=== PATIENT | male | born 1945 | race Caucasian/White ===

== ENCOUNTER 2017-03-15 13:07 | Inpatient (IN) | payer MEDICAID, MEDICARE ==
[~2017-03-15] VITALS: Ht 182.9 cm; Wt 72.9 kg
[2017-03-15] MEDS ORDERED: SODIUM CHLORIDE 0.9% 1,000 ML IV ONE (13:17)
[2017-03-15] MEDS ORDERED: PLEASE ENTER HEIGHT AND WEIGHT MC SCH (13:30)
[2017-03-15] MEDS ORDERED: SODIUM CHLORIDE FLUSH 10ML SYR IVF ONE (13:30)
[2017-03-15] MEDS ORDERED: PLEASE ENTER ALLERGIES MC SCH ×2 (13:30)
[2017-03-15 13:41] LABS: HEMATOCRIT 46.4 % (39.2-51.8); HEMOGLOBIN 15.1 g/dL (13.7-18.0); WHITE BLOOD COUNT 15.5 x10^3/uL (3.4-10)
[2017-03-15 13:53] LABS: BLOOD UREA NITROGEN 18 mg/dL (7-18)
[2017-03-15 13:57] LABS: ASPARTATE AMINO TRANSFERASE 11 U/L (15-37); IS PT STATUS REG ER OR PRE ER? YES
[2017-03-15 15:15] LABS: DAU SCREEN DISCLAIMER
[2017-03-15] MEDS ORDERED: THIAMINE 100 MG in SODIUM CHLORIDE 0.9% 50 ML IVPB ONE (16:00)
[2017-03-15] MEDS ORDERED: LIDOCAINE 1%, 20ML ONE (17:18)
[2017-03-15] MEDS ORDERED: ACETAMINOPHEN 325 MG TABLET PO PRN (17:30)
[2017-03-15] MEDS ORDERED: POLYETHYLENE GLYCOL 17 GM PACKET PO PRN ×2 (17:30→19:00)
[2017-03-15] MEDS ORDERED: DOCUSATE 100 MG CAPSULE PO PRN ×2 (17:30→19:00)
[2017-03-15] MEDS ORDERED: BISACODYL 10 MG SUPP PR PRN ×2 (17:30→19:00)
[2017-03-15 18:39] LABS: GLUCOSE, CSF 53 mg/dL (40-80)
[2017-03-15 20:27] VITALS: BP 131/82
[2017-03-15] MEDS: FAMOTIDINE 20 MG TABLET PO SCH (20:30)
[2017-03-15] MEDS: ACETAMINOPHEN 325 MG TABLET PO PRN (20:30)
[2017-03-16 02:00] VITALS: BP 153/92
[2017-03-16 06:03] LABS: HEMATOCRIT 42.3 % (39.2-51.8); HEMOGLOBIN 14.1 g/dL (13.7-18.0); WHITE BLOOD COUNT 11.8 x10^3/uL (3.4-10)
[2017-03-16 06:15] LABS: ASPARTATE AMINO TRANSFERASE 20 U/L (15-37); BLOOD UREA NITROGEN 18 mg/dL (7-18)
[2017-03-16 07:34] VITALS: BP 133/79
[2017-03-16] MEDS: FOLIC ACID 1 MG TABLET PO SCH (09:04)
[2017-03-16] MEDS: FAMOTIDINE 20 MG TABLET PO SCH ×2 (09:04→21:12)
[2017-03-16] MEDS: THIAMINE 100MG TABLET PO SCH (09:04)
[2017-03-16] MEDS ORDERED: VALPROATE SODIUM 500 MG in SODIUM CHLORIDE 0.9% 100 ML IV SCH (13:00)
[2017-03-16 13:02] VITALS: BP 161/88
[2017-03-16] MEDS: ACETAMINOPHEN 325 MG TABLET PO PRN ×2 (13:12→21:12)
[2017-03-16] MEDS: VALPROATE SODIUM 500 MG in SODIUM CHLORIDE 0.9% 100 ML IV SCH ×2 (16:51→21:32)
[2017-03-16 20:00] VITALS: BP 133/85
[2017-03-16] MEDS ORDERED: PHARMACOKINETIC CONSULTATION MC ONE (21:30)
[2017-03-16] MEDS ORDERED: PHARMACOKINETIC MONITORING MC PRN (21:30)
[2017-03-16] MEDS ORDERED: VANCOMYCIN PER PHARMACY MC PRN (21:30)
[2017-03-16] MEDS: VANCOMYCIN 1,600 MG in SODIUM CHLORIDE 0.9% 250 ML IV SCH (22:11)
[2017-03-16] MEDS: PIPERACILLIN/TAZO/PMX 3.375GM 50 ML IV SCH (23:13)
[2017-03-17 02:00] VITALS: BP 128/77
[2017-03-17] MEDS: PIPERACILLIN/TAZO/PMX 3.375GM 50 ML IV SCH ×4 (05:42→23:20)
[2017-03-17] MEDS: ACETAMINOPHEN 325 MG TABLET PO PRN ×2 (06:02→19:31)
[2017-03-17 06:14] LABS: HEMATOCRIT 43.8 % (39.2-51.8); HEMOGLOBIN 14.3 g/dL (13.7-18.0); WHITE BLOOD COUNT 14.4 x10^3/uL (3.4-10)
[2017-03-17 06:49] LABS: ASPARTATE AMINO TRANSFERASE 53 U/L (15-37); BLOOD UREA NITROGEN 20 mg/dL (7-18)
[2017-03-17 07:03] VITALS: BP 93/60
[2017-03-17] MEDS: FOLIC ACID 1 MG TABLET PO SCH (09:11)
[2017-03-17] MEDS: THIAMINE 100MG TABLET PO SCH (09:11)
[2017-03-17] MEDS: FAMOTIDINE 20 MG TABLET PO SCH ×2 (09:11→22:06)
[2017-03-17] MEDS: VALPROATE SODIUM 500 MG in SODIUM CHLORIDE 0.9% 100 ML IV SCH ×2 (09:54→22:05)
[2017-03-17 12:54] VITALS: BP 134/81
[2017-03-17] MEDS: VANCOMYCIN 1,600 MG in SODIUM CHLORIDE 0.9% 250 ML IV SCH (15:27)
[2017-03-17 20:00] VITALS: BP 127/83
[2017-03-17] MEDS: ACYCLOVIR IV SCH (22:46)
[2017-03-17] MEDS: SODIUM CHLORIDE 0.9% IV SCH (22:46)
[2017-03-18 02:00] VITALS: BP 113/73
[2017-03-18] MEDS: PIPERACILLIN/TAZO/PMX 3.375GM 50 ML IV SCH ×4 (05:11→22:18)
[2017-03-18] MEDS: ACETAMINOPHEN 325 MG TABLET PO PRN ×2 (05:27→21:01)
[2017-03-18] MEDS: SODIUM CHLORIDE 0.9% IV SCH ×3 (05:58→22:18)
[2017-03-18] MEDS: ACYCLOVIR IV SCH ×3 (05:58→22:18)
[2017-03-18 06:41] LABS: HEMATOCRIT 40.2 % (39.2-51.8); HEMOGLOBIN 13.5 g/dL (13.7-18.0); WHITE BLOOD COUNT 8.8 x10^3/uL (3.4-10)
[2017-03-18 06:43] LABS: BLOOD UREA NITROGEN 21 mg/dL (7-18)
[2017-03-18 06:52] VITALS: BP 100/65
[2017-03-18] MEDS: VALPROATE SODIUM 500 MG in SODIUM CHLORIDE 0.9% 100 ML IV SCH ×2 (09:51→21:01)
[2017-03-18] MEDS: THIAMINE 100MG TABLET PO SCH (09:53)
[2017-03-18] MEDS: FAMOTIDINE 20 MG TABLET PO SCH ×2 (09:53→21:01)
[2017-03-18] MEDS: VANCOMYCIN 1,600 MG in SODIUM CHLORIDE 0.9% 250 ML IV SCH (09:53)
[2017-03-18] MEDS: FOLIC ACID 1 MG TABLET PO SCH (09:54)
[2017-03-18 12:35] VITALS: BP 103/69
[2017-03-18] MEDS ORDERED: GADOBUTROL 10 MMOL/10 ML PFS ONE (16:23)
[2017-03-18 20:00] VITALS: BP 135/82
[2017-03-18] MEDS ORDERED: OMNIPAQUE 350 MG/ML, 100ML BOTTLE ONE (20:41)
[2017-03-19 02:00] VITALS: BP 119/75
[2017-03-19] MEDS: VANCOMYCIN 1,600 MG in SODIUM CHLORIDE 0.9% 250 ML IV SCH (03:12)
[2017-03-19 03:28] LABS: HEMATOCRIT 43.3 % (39.2-51.8); HEMOGLOBIN 14.1 g/dL (13.7-18.0); WHITE BLOOD COUNT 6.8 x10^3/uL (3.4-10)
[2017-03-19 03:37] LABS: ASPARTATE AMINO TRANSFERASE 90 U/L (15-37); BLOOD UREA NITROGEN 13 mg/dL (7-18)
[2017-03-19] MEDS: PIPERACILLIN/TAZO/PMX 3.375GM 50 ML IV SCH ×3 (05:06→17:53)
[2017-03-19] MEDS: SODIUM CHLORIDE 0.9% IV SCH ×2 (06:09→15:23)
[2017-03-19] MEDS: ACYCLOVIR IV SCH ×2 (06:09→15:23)
[2017-03-19 07:05] VITALS: BP 124/77
[2017-03-19] MEDS: FOLIC ACID 1 MG TABLET PO SCH (10:19)
[2017-03-19] MEDS: FAMOTIDINE 20 MG TABLET PO SCH ×2 (10:19→21:00)
[2017-03-19] MEDS: VALPROATE SODIUM 500 MG in SODIUM CHLORIDE 0.9% 100 ML IV SCH ×2 (10:19→23:49)
[2017-03-19] MEDS: THIAMINE 100MG TABLET PO SCH (10:19)
[2017-03-19 12:45] VITALS: BP 114/74
[2017-03-19] MEDS: ACETAMINOPHEN 325 MG TABLET PO PRN (19:51)
[2017-03-19] MEDS: METOPROLOL TARTRATE 25 MG TABLET PO SCH (19:51)
[2017-03-19 20:00] VITALS: BP 153/89
[2017-03-20 02:00] VITALS: BP 131/84
[2017-03-20] MEDS ORDERED: METOPROLOL TARTRATE 25 MG TABLET PO SCH (06:00)
[2017-03-20 06:14] LABS: HEMATOCRIT 41.9 % (39.2-51.8); HEMOGLOBIN 13.8 g/dL (13.7-18.0); WHITE BLOOD COUNT 7.3 x10^3/uL (3.4-10)
[2017-03-20 06:25] LABS: ASPARTATE AMINO TRANSFERASE 150 U/L (15-37); BLOOD UREA NITROGEN 13 mg/dL (7-18)
[2017-03-20 06:54] VITALS: BP 150/83
[2017-03-20] MEDS: FOLIC ACID 1 MG TABLET PO SCH (09:00)
[2017-03-20] MEDS: METOPROLOL TARTRATE 25 MG TABLET PO SCH ×2 (09:00→20:06)
[2017-03-20] MEDS: FAMOTIDINE 20 MG TABLET PO SCH ×2 (09:00→20:06)
[2017-03-20] MEDS: THIAMINE 100MG TABLET PO SCH (09:00)
[2017-03-20] MEDS: VALPROATE SODIUM 500 MG in SODIUM CHLORIDE 0.9% 100 ML IV SCH ×2 (09:41→20:07)
[2017-03-20 10:07] LABS: BARTONELLA HENSELAE IGG Negative titer (Neg:<1:320); BARTONELLA HENSELAE IGM Negative titer (Neg:<1:100); BARTONELLA QUINTANA IGM Negative titer (Neg:<1:100)
[2017-03-20 12:16] VITALS: BP 150/93
[2017-03-20 13:07] LABS: BRUCELLA IGG Negative (Negative); BRUCELLA IGM Negative (Negative)
[2017-03-20] MEDS ORDERED: LIDOCAINE 1%, 10ML INFIL ONE (18:30)
[2017-03-20 18:51] VITALS: BP 136/82
[2017-03-20 19:04] LABS: HIV 1&2 ANTIBODY SCREEN Nonreactive (Nonreactive); HIV-1 p24 ANTIGEN Nonreactive (Nonreactive)
[2017-03-21 00:26] VITALS: BP 126/85
[2017-03-21] MEDS: ACETAMINOPHEN 325 MG TABLET PO PRN (03:22)
[2017-03-21 05:57] LABS: HEMATOCRIT 44.4 % (39.2-51.8); HEMOGLOBIN 14.8 g/dL (13.7-18.0); WHITE BLOOD COUNT 8.8 x10^3/uL (3.4-10)
[2017-03-21 06:02] LABS: ASPARTATE AMINO TRANSFERASE 181 U/L (15-37); BLOOD UREA NITROGEN 15 mg/dL (7-18)
[2017-03-21 06:18] LABS: DIFF TOTAL CELLS COUNTED 100 CELL DIFF
[2017-03-21 06:20] LABS: ANISOCYTOSIS 1+; VERIFY COUNTS? YES
[2017-03-21 06:21] LABS: LARGE PLATELETS 1+
[2017-03-21 07:08] VITALS: BP 113/74
[2017-03-21 08:30] LABS: IS PT STATUS REG ER OR PRE ER? NO
[2017-03-21] MEDS ORDERED: LIDOCAINE 1%, 10ML INFIL ONE (09:00)
[2017-03-21] MEDS: FOLIC ACID 1 MG TABLET PO SCH (09:00)
[2017-03-21] MEDS: VALPROATE SODIUM 500 MG in SODIUM CHLORIDE 0.9% 100 ML IV SCH ×2 (09:59→21:08)
[2017-03-21] MEDS: THIAMINE 100MG TABLET PO SCH (10:00)
[2017-03-21] MEDS: FAMOTIDINE 20 MG TABLET PO SCH ×2 (10:00→21:08)
[2017-03-21 12:47] VITALS: BP 98/68
[2017-03-21 16:27] LABS: IS PT STATUS REG ER OR PRE ER? NO
[2017-03-21] MEDS: CEFTAROLINE 600 MG in SODIUM CHLORIDE 0.9% 100 ML IV SCH (17:33)
[2017-03-21 18:43] VITALS: BP 109/74
[2017-03-21] MEDS: DAPTOMYCIN 480 MG in SODIUM CHLORIDE 0.9% 100 ML IVPB SCH (18:48)
[2017-03-21] MEDS ORDERED: METOPROLOL TARTRATE 25 MG TABLET PO SCH (21:00)
[2017-03-22 01:38] VITALS: BP 104/69
[2017-03-22 05:35] LABS: HEMATOCRIT 45.6 % (39.2-51.8); HEMOGLOBIN 14.9 g/dL (13.7-18.0); WHITE BLOOD COUNT 10.6 x10^3/uL (3.4-10)
[2017-03-22 05:40] LABS: BLOOD UREA NITROGEN 24 mg/dL (7-18)
[2017-03-22 05:42] LABS: ASPARTATE AMINO TRANSFERASE 104 U/L (15-37)
[2017-03-22] MEDS: CEFTAROLINE 600 MG in SODIUM CHLORIDE 0.9% 100 ML IV SCH ×2 (06:42→18:17)
[2017-03-22 07:04] LABS: DIFF TOTAL CELLS COUNTED 100 CELL DIFF
[2017-03-22 07:08] LABS: ANISOCYTOSIS 1+; LARGE PLATELETS 1+; POIKILOCYTOSIS 1+
[2017-03-22 07:10] LABS: VERIFY COUNTS? YES
[2017-03-22 08:50] VITALS: BP 107/73
[2017-03-22] MEDS: METOPROLOL TARTRATE 25 MG TABLET PO SCH ×2 (09:00→21:00)
[2017-03-22] MEDS: FAMOTIDINE 20 MG TABLET PO SCH ×2 (10:11→23:29)
[2017-03-22] MEDS: FOLIC ACID 1 MG TABLET PO SCH (10:11)
[2017-03-22] MEDS: VALPROATE SODIUM 500 MG in SODIUM CHLORIDE 0.9% 100 ML IV SCH ×2 (10:12→23:31)
[2017-03-22] MEDS: THIAMINE 100MG TABLET PO SCH (10:12)
[2017-03-22] MEDS: SODIUM CHLORIDE 0.9% 1,000 ML IV SCH ×2 (10:13→23:30)
[2017-03-22 10:15] VITALS: BP 96/56
[2017-03-22] MEDS: LACTULOSE 20 GM/30 ML UDC PO SCH ×2 (14:04→23:29)
[2017-03-22 15:30] VITALS: BP 89/62
[2017-03-22] MEDS: DAPTOMYCIN 480 MG in SODIUM CHLORIDE 0.9% 100 ML IVPB SCH (16:04)
[2017-03-22] MEDS ORDERED: SODIUM CHLORIDE 0.9% 500 ML IV ONE (18:00)
[2017-03-22 18:27] VITALS: BP 108/73
[2017-03-22] MEDS ORDERED: DOCUSATE 100 MG CAPSULE PO PRN (18:30)
[2017-03-22] MEDS ORDERED: POLYETHYLENE GLYCOL 17 GM PACKET PO PRN (18:30)
[2017-03-22] MEDS ORDERED: BISACODYL 10 MG SUPP PR PRN (18:30)
[2017-03-22 19:11] VITALS: BP 122/79
[2017-03-23 02:07] VITALS: BP 121/81
[2017-03-23 05:25] LABS: HEMATOCRIT 41.8 % (39.2-51.8); HEMOGLOBIN 13.7 g/dL (13.7-18.0); WHITE BLOOD COUNT 11.4 x10^3/uL (3.4-10)
[2017-03-23 05:37] LABS: ASPARTATE AMINO TRANSFERASE 55 U/L (15-37); BLOOD UREA NITROGEN 22 mg/dL (7-18)
[2017-03-23] MEDS: CEFTAROLINE 600 MG in SODIUM CHLORIDE 0.9% 100 ML IV SCH ×3 (05:46→21:12)
[2017-03-23 07:54] VITALS: BP 131/88
[2017-03-23] MEDS: METOPROLOL TARTRATE 25 MG TABLET PO SCH ×2 (09:00→21:11)
[2017-03-23] MEDS: FOLIC ACID 1 MG TABLET PO SCH (09:16)
[2017-03-23] MEDS: THIAMINE 100MG TABLET PO SCH (09:16)
[2017-03-23] MEDS: FAMOTIDINE 20 MG TABLET PO SCH ×2 (09:17→21:11)
[2017-03-23] MEDS: LACTULOSE 20 GM/30 ML UDC PO SCH ×2 (09:18→21:11)
[2017-03-23] MEDS: VALPROATE SODIUM 500 MG in SODIUM CHLORIDE 0.9% 100 ML IV SCH ×2 (11:01→23:57)
[2017-03-23] MEDS: SODIUM CHLORIDE 0.9% 1,000 ML IV SCH (14:23)
[2017-03-23] MEDS: DAPTOMYCIN 480 MG in SODIUM CHLORIDE 0.9% 100 ML IVPB SCH (17:41)
[2017-03-23 19:11] VITALS: BP 126/86
[2017-03-23] MEDS: ENOXAPARIN 40 MG/0.4 ML SQ SCH (21:11)
[2017-03-24 01:51] VITALS: BP 128/82
[2017-03-24] MEDS: SODIUM CHLORIDE 0.9% 1,000 ML IV SCH ×2 (03:54→17:01)
[2017-03-24 05:05] LABS: HEMATOCRIT 41.7 % (39.2-51.8); HEMOGLOBIN 13.7 g/dL (13.7-18.0); WHITE BLOOD COUNT 12.5 x10^3/uL (3.4-10)
[2017-03-24 05:42] LABS: ASPARTATE AMINO TRANSFERASE 40 U/L (15-37); BLOOD UREA NITROGEN 20 mg/dL (7-18)
[2017-03-24 07:44] VITALS: BP 126/81
[2017-03-24 08:14] LABS: WESTNILEVIRUSIGG SEE PRINTED REPORT; WESTNILEVIRUSIGM SEE PRINTED REPORT
[2017-03-24] MEDS: FOLIC ACID 1 MG TABLET PO SCH (09:54)
[2017-03-24] MEDS: FAMOTIDINE 20 MG TABLET PO SCH ×2 (09:54→20:56)
[2017-03-24] MEDS: THIAMINE 100MG TABLET PO SCH (09:54)
[2017-03-24] MEDS: LACTULOSE 20 GM/30 ML UDC PO SCH ×2 (09:55→20:55)
[2017-03-24] MEDS: CEFTAROLINE 600 MG in SODIUM CHLORIDE 0.9% 100 ML IV SCH ×2 (09:56→22:11)
[2017-03-24] MEDS: METOPROLOL TARTRATE 25 MG TABLET PO SCH ×2 (09:56→20:56)
[2017-03-24] MEDS: VALPROATE SODIUM 500 MG in SODIUM CHLORIDE 0.9% 100 ML IV SCH ×2 (11:53→20:56)
[2017-03-24 14:00] VITALS: BP 128/86
[2017-03-24 16:07] LABS: COCCIDIOIDES AB (CF) <1:2 (<1:2); COCCIDIOIDES IGG 1.4 IV (<=0.9); COCCIDIOIDES IGM 0.4 IV (<=0.9)
[2017-03-24] MEDS: DAPTOMYCIN 480 MG in SODIUM CHLORIDE 0.9% 100 ML IVPB SCH (16:59)
[2017-03-24 20:00] VITALS: BP 118/79
[2017-03-24] MEDS: ENOXAPARIN 40 MG/0.4 ML SQ SCH (20:57)
[2017-03-25 02:30] VITALS: BP 128/78
[2017-03-25 04:54] LABS: HEMATOCRIT 40.6 % (39.2-51.8); HEMOGLOBIN 13.4 g/dL (13.7-18.0); WHITE BLOOD COUNT 12.8 x10^3/uL (3.4-10)
[2017-03-25 05:03] LABS: ASPARTATE AMINO TRANSFERASE 30 U/L (15-37); BLOOD UREA NITROGEN 19 mg/dL (7-18)
[2017-03-25 05:45] LABS: DIFF TOTAL CELLS COUNTED 100 CELL DIFF
[2017-03-25 05:47] LABS: ANISOCYTOSIS 1+; VERIFY COUNTS? YES
[2017-03-25 07:10] VITALS: BP 122/76
[2017-03-25] MEDS: METOPROLOL TARTRATE 25 MG TABLET PO SCH ×2 (09:00→20:48)
[2017-03-25 09:07] LABS: NGI WEST NILE VIRUS RT PCR Negative (.)
[2017-03-25] MEDS: VALPROATE SODIUM 500 MG in SODIUM CHLORIDE 0.9% 100 ML IV SCH ×2 (09:50→20:46)
[2017-03-25] MEDS: LACTULOSE 20 GM/30 ML UDC PO SCH ×2 (09:50→20:46)
[2017-03-25] MEDS: FAMOTIDINE 20 MG TABLET PO SCH ×2 (09:52→20:46)
[2017-03-25] MEDS: THIAMINE 100MG TABLET PO SCH (09:52)
[2017-03-25] MEDS: SODIUM CHLORIDE 0.9% 1,000 ML IV SCH ×2 (09:54→19:20)
[2017-03-25] MEDS: FOLIC ACID 1 MG TABLET PO SCH (10:00)
[2017-03-25] MEDS: ERGOCALCIFEROL 50,000 UNIT CAPSULE PO SCH (10:08)
[2017-03-25 12:25] VITALS: BP 135/83
[2017-03-25] MEDS: CEFTAROLINE 600 MG in SODIUM CHLORIDE 0.9% 100 ML IV SCH (13:05)
[2017-03-25] MEDS: DAPTOMYCIN 480 MG in SODIUM CHLORIDE 0.9% 100 ML IVPB SCH (17:26)
[2017-03-25 20:00] VITALS: BP 135/83
[2017-03-25] MEDS: ENOXAPARIN 40 MG/0.4 ML SQ SCH (20:47)
[2017-03-26] MEDS: CEFTAROLINE 600 MG in SODIUM CHLORIDE 0.9% 100 ML IV SCH ×2 (00:23→14:13)
[2017-03-26 02:00] VITALS: BP 129/81
[2017-03-26 04:37] LABS: HEMATOCRIT 39.3 % (39.2-51.8); WHITE BLOOD COUNT 12.4 x10^3/uL (3.4-10)
[2017-03-26 04:51] LABS: ASPARTATE AMINO TRANSFERASE 24 U/L (15-37); BLOOD UREA NITROGEN 17 mg/dL (7-18)
[2017-03-26 05:37] LABS: DIFF TOTAL CELLS COUNTED 100 CELL DIFF
[2017-03-26 05:39] LABS: VERIFY COUNTS? YES
[2017-03-26 05:40] LABS: ANISOCYTOSIS 1+
[2017-03-26 06:45] VITALS: BP 152/88
[2017-03-26] MEDS: LACTULOSE 20 GM/30 ML UDC PO SCH ×2 (09:00→20:33)
[2017-03-26] MEDS: VALPROATE SODIUM 500 MG in SODIUM CHLORIDE 0.9% 100 ML IV SCH (09:49)
[2017-03-26] MEDS: METOPROLOL TARTRATE 25 MG TABLET PO SCH ×2 (09:49→20:33)
[2017-03-26] MEDS: FOLIC ACID 1 MG TABLET PO SCH (09:49)
[2017-03-26] MEDS: THIAMINE 100MG TABLET PO SCH (09:50)
[2017-03-26] MEDS: FAMOTIDINE 20 MG TABLET PO SCH ×2 (09:50→20:30)
[2017-03-26 13:20] VITALS: BP 136/83
[2017-03-26 20:00] VITALS: BP 145/82
[2017-03-26] MEDS: ENOXAPARIN 40 MG/0.4 ML SQ SCH (20:30)
[2017-03-26] MEDS ORDERED: PNEUMOCOCCAL 23 VACCINE IM-VACC ONE (20:30)
[2017-03-26] MEDS: SODIUM CHLORIDE 0.9% 1,000 ML IV SCH (20:31)
[2017-03-26] MEDS ORDERED: FLU VACC QS2017-18 (36MOS+) UP/PF 0.5 ML IM-VACC ONE (21:00)
[2017-03-27] MEDS: CEFTAROLINE 600 MG in SODIUM CHLORIDE 0.9% 100 ML IV SCH ×2 (00:52→12:58)
[2017-03-27 02:00] VITALS: BP 155/85
[2017-03-27 05:36] LABS: HEMATOCRIT 40.5 % (39.2-51.8); HEMOGLOBIN 13.5 g/dL (13.7-18.0); WHITE BLOOD COUNT 14.4 x10^3/uL (3.4-10)
[2017-03-27 06:02] LABS: ASPARTATE AMINO TRANSFERASE 23 U/L (15-37); BLOOD UREA NITROGEN 11 mg/dL (7-18)
[2017-03-27 07:52] VITALS: BP 142/76
[2017-03-27] MEDS: LACTULOSE 20 GM/30 ML UDC PO SCH ×2 (09:00→21:54)
[2017-03-27] MEDS: FOLIC ACID 1 MG TABLET PO SCH (10:16)
[2017-03-27] MEDS: THIAMINE 100MG TABLET PO SCH (10:16)
[2017-03-27] MEDS: FAMOTIDINE 20 MG TABLET PO SCH ×2 (10:16→21:54)
[2017-03-27] MEDS: METOPROLOL TARTRATE 25 MG TABLET PO SCH ×2 (10:16→21:54)
[2017-03-27 14:11] VITALS: BP 140/84
[2017-03-27] MEDS: ENOXAPARIN 40 MG/0.4 ML SQ SCH (21:00)
[2017-03-27 21:52] VITALS: BP 162/96
[2017-03-28 02:00] VITALS: BP 155/89
[2017-03-28] MEDS: CEFTAROLINE 600 MG in SODIUM CHLORIDE 0.9% 100 ML IV SCH ×2 (02:00→11:31)
[2017-03-28 06:00] LABS: HEMOGLOBIN 13.1 g/dL (13.7-18.0); WHITE BLOOD COUNT 12.9 x10^3/uL (3.4-10)
[2017-03-28 06:20] LABS: ASPARTATE AMINO TRANSFERASE 27 U/L (15-37); BLOOD UREA NITROGEN 11 mg/dL (7-18)
[2017-03-28 06:45] VITALS: BP 141/85
[2017-03-28] MEDS: THIAMINE 100MG TABLET PO SCH (08:49)
[2017-03-28] MEDS: FOLIC ACID 1 MG TABLET PO SCH (08:49)
[2017-03-28] MEDS: LACTULOSE 20 GM/30 ML UDC PO SCH (08:49)
[2017-03-28] MEDS: FAMOTIDINE 20 MG TABLET PO SCH (08:49)
[2017-03-28] MEDS: METOPROLOL TARTRATE 25 MG TABLET PO SCH (08:49)
[2017-03-28] MEDS ORDERED: POTASSIUM CHLORIDE 20 MEQ TAB.ER.PRT PO ONE (09:30)
[2017-03-28 12:08] VITALS: BP 150/90
[2017-03-28 19:26] VITALS: BP 146/84
[2017-03-29 00:07] VITALS: BP 133/91
[2017-03-29] MEDS: CEFTAROLINE 600 MG in SODIUM CHLORIDE 0.9% 100 ML IV SCH ×2 (00:08→13:16)
[2017-03-29] MEDS: ENOXAPARIN 40 MG/0.4 ML SQ SCH ×2 (00:09→20:38)
[2017-03-29] MEDS: METOPROLOL TARTRATE 25 MG TABLET PO SCH ×3 (00:12→20:37)
[2017-03-29] MEDS: FAMOTIDINE 20 MG TABLET PO SCH ×3 (00:12→20:38)
[2017-03-29] MEDS: LACTULOSE 20 GM/30 ML UDC PO SCH ×3 (00:12→20:38)
[2017-03-29 06:08] LABS: HEMATOCRIT 41.2 % (39.2-51.8); HEMOGLOBIN 13.6 g/dL (13.7-18.0); WHITE BLOOD COUNT 14.1 x10^3/uL (3.4-10)
[2017-03-29 06:25] LABS: ASPARTATE AMINO TRANSFERASE 30 U/L (15-37); BLOOD UREA NITROGEN 10 mg/dL (7-18)
[2017-03-29 07:37] VITALS: BP 139/87
[2017-03-29] MEDS: FOLIC ACID 1 MG TABLET PO SCH (09:31)
[2017-03-29] MEDS: THIAMINE 100MG TABLET PO SCH (09:31)
[2017-03-29 13:30] VITALS: BP 122/80
[2017-03-29 20:36] VITALS: BP 135/85
[2017-03-30] MEDS: CEFTAROLINE 600 MG in SODIUM CHLORIDE 0.9% 100 ML IV SCH ×2 (01:29→13:25)
[2017-03-30 01:40] VITALS: BP 117/77
[2017-03-30 06:24] LABS: HEMATOCRIT 40.1 % (39.2-51.8); HEMOGLOBIN 13.2 g/dL (13.7-18.0); WHITE BLOOD COUNT 14.6 x10^3/uL (3.4-10)
[2017-03-30 06:43] LABS: ASPARTATE AMINO TRANSFERASE 27 U/L (15-37); BLOOD UREA NITROGEN 12 mg/dL (7-18)
[2017-03-30 07:50] VITALS: BP 125/75
[2017-03-30] MEDS: THIAMINE 100MG TABLET PO SCH (10:28)
[2017-03-30] MEDS: METOPROLOL TARTRATE 25 MG TABLET PO SCH ×2 (10:28→20:41)
[2017-03-30] MEDS: FOLIC ACID 1 MG TABLET PO SCH (10:28)
[2017-03-30] MEDS: LACTULOSE 20 GM/30 ML UDC PO SCH ×2 (10:30→20:41)
[2017-03-30] MEDS: FAMOTIDINE 20 MG TABLET PO SCH ×2 (10:30→20:41)
[2017-03-30 12:55] VITALS: BP 123/78
[2017-03-30] MEDS ORDERED: BISACODYL 10 MG SUPP PR PRN (17:30)
[2017-03-30] MEDS ORDERED: DOCUSATE 100 MG CAPSULE PO PRN (17:30)
[2017-03-30] MEDS ORDERED: POLYETHYLENE GLYCOL 17 GM PACKET PO PRN (17:30)
[2017-03-30 18:56] VITALS: BP 138/85
[2017-03-30] MEDS: ENOXAPARIN 40 MG/0.4 ML SQ SCH (20:41)
[2017-03-30] MEDS: ACETAMINOPHEN 325 MG TABLET PO PRN (23:09)
[2017-03-31] MEDS ORDERED: MORPHINE SULFATE 4 MG/ML, 1ML IVPush PRN (01:00)
[2017-03-31 01:36] VITALS: BP 149/98
[2017-03-31] MEDS: CEFTAROLINE 600 MG in SODIUM CHLORIDE 0.9% 100 ML IV SCH (01:38)
[2017-03-31 04:51] LABS: HEMATOCRIT 38.8 % (39.2-51.8); HEMOGLOBIN 12.9 g/dL (13.7-18.0); WHITE BLOOD COUNT 14.6 x10^3/uL (3.4-10)
[2017-03-31 05:03] LABS: BLOOD UREA NITROGEN 16 mg/dL (7-18)
[2017-03-31 09:00] VITALS: BP 130/77
[2017-03-31] MEDS: THIAMINE 100MG TABLET PO SCH (09:32)
[2017-03-31] MEDS: FOLIC ACID 1 MG TABLET PO SCH (09:32)
[2017-03-31] MEDS: METOPROLOL TARTRATE 25 MG TABLET PO SCH ×2 (09:32→20:38)
[2017-03-31] MEDS: FAMOTIDINE 20 MG TABLET PO SCH ×2 (09:32→20:38)
[2017-03-31] MEDS: LACTULOSE 20 GM/30 ML UDC PO SCH ×2 (09:33→20:38)
[2017-03-31 15:00] VITALS: BP 130/82
[2017-03-31] MEDS ORDERED: CEFTAROLINE 600 MG in SODIUM CHLORIDE 0.9% 100 ML IV SCH (16:00)
[2017-03-31] MEDS: ACETAMINOPHEN 325 MG TABLET PO PRN (16:25)
[2017-03-31 19:47] VITALS: BP 95/60
[2017-03-31] MEDS: ENOXAPARIN 40 MG/0.4 ML SQ SCH (20:38)
[2017-04-01 01:45] VITALS: BP 129/77
[2017-04-01 05:00] LABS: HEMATOCRIT 39.4 % (39.2-51.8); HEMOGLOBIN 13.2 g/dL (13.7-18.0); WHITE BLOOD COUNT 14.8 x10^3/uL (3.4-10)
[2017-04-01 05:11] LABS: BLOOD UREA NITROGEN 18 mg/dL (7-18)
[2017-04-01 08:36] VITALS: BP 144/92
[2017-04-01] MEDS: THIAMINE 100MG TABLET PO SCH (09:15)
[2017-04-01] MEDS: LACTULOSE 20 GM/30 ML UDC PO SCH ×2 (09:17→21:09)
[2017-04-01] MEDS: FAMOTIDINE 20 MG TABLET PO SCH ×2 (09:17→21:09)
[2017-04-01] MEDS: FOLIC ACID 1 MG TABLET PO SCH (09:17)
[2017-04-01] MEDS: METOPROLOL TARTRATE 25 MG TABLET PO SCH ×2 (09:17→21:09)
[2017-04-01] MEDS: ERGOCALCIFEROL 50,000 UNIT CAPSULE PO SCH (09:17)
[2017-04-01 13:35] VITALS: BP 112/71
[2017-04-01 20:27] VITALS: BP 119/79
[2017-04-01] MEDS: ENOXAPARIN 40 MG/0.4 ML SQ SCH (21:09)
[2017-04-02 02:21] VITALS: BP 112/73
[2017-04-02 07:45] VITALS: BP 123/75
[2017-04-02] MEDS ORDERED: LABETALOL 5MG/ML, 20ML IVPush PRN (08:30)
[2017-04-02] MEDS: METOPROLOL TARTRATE 25 MG TABLET PO SCH ×2 (10:10→21:24)
[2017-04-02] MEDS: THIAMINE 100MG TABLET PO SCH (10:10)
[2017-04-02] MEDS: LACTULOSE 20 GM/30 ML UDC PO SCH ×2 (10:10→21:24)
[2017-04-02] MEDS: FAMOTIDINE 20 MG TABLET PO SCH ×2 (10:10→21:24)
[2017-04-02] MEDS: FOLIC ACID 1 MG TABLET PO SCH (10:10)
[2017-04-02 13:53] VITALS: BP 125/82
[2017-04-02] MEDS: D5%-0.45NACL+KCL 20MEQ 1,000 ML IV SCH (16:29)
[2017-04-02 19:45] VITALS: BP 123/77
[2017-04-02] MEDS: ENOXAPARIN 40 MG/0.4 ML SQ SCH (21:24)
[2017-04-03 01:40] VITALS: BP 124/83
[2017-04-03] MEDS: D5%-0.45NACL+KCL 20MEQ 1,000 ML IV SCH ×3 (03:43→23:27)
[2017-04-03 06:15] LABS: HEMATOCRIT 39.3 % (39.2-51.8); HEMOGLOBIN 12.9 g/dL (13.7-18.0); WHITE BLOOD COUNT 13.2 x10^3/uL (3.4-10)
[2017-04-03 06:28] LABS: BLOOD UREA NITROGEN 16 mg/dL (7-18)
[2017-04-03 07:25] VITALS: BP 142/90
[2017-04-03] MEDS: METOPROLOL TARTRATE 25 MG TABLET PO SCH ×2 (09:00→18:00)
[2017-04-03] MEDS: THIAMINE 100MG TABLET PO SCH (10:19)
[2017-04-03] MEDS: FAMOTIDINE 20 MG TABLET PO SCH ×2 (10:20→21:00)
[2017-04-03] MEDS: FOLIC ACID 1 MG TABLET PO SCH (10:23)
[2017-04-03] MEDS: LACTULOSE 20 GM/30 ML UDC PO SCH ×2 (10:23→21:00)
[2017-04-03 13:43] VITALS: BP 146/93
[2017-04-03] MEDS ORDERED: THROMBIN 5,000 UNIT VIAL TP ONE ×3 (13:47→17:56)
[2017-04-03] MEDS ORDERED: PROTAMINE SULFATE 10 MG/ML, 25ML ONE (13:47)
[2017-04-03] MEDS ORDERED: HEPARIN 1,000 UNITS/ML, 10ML ONE (13:47)
[2017-04-03 13:50] VITALS: BP 139/87
[2017-04-03] MEDS ORDERED: EPINEPHRINE 1 MG/ML, 1ML ONE (14:07)
[2017-04-03] MEDS ORDERED: BUPIVACAINE/PF 0.5% ONE (14:07)
[2017-04-03] MEDS ORDERED: MIDAZOLAM 1 MG/ML, 2ML ONE ×2 (15:24→17:48)
[2017-04-03] MEDS ORDERED: FENTANYL PF 250 MCG/5ML ONE (15:24)
[2017-04-03] MEDS ORDERED: DEXAMETHASONE 4 MG/ML, 5ML ONE (15:44)
[2017-04-03] MEDS ORDERED: PHENYLEPHRINE 10 MG/ML ONE (15:44)
[2017-04-03] MEDS ORDERED: PROPOFOL 10 MG/ML, 20ML ONE (15:44)
[2017-04-03] MEDS ORDERED: SUCCINYLCHOLINE 20 MG/ML, 10ML ONE (15:44)
[2017-04-03] MEDS ORDERED: ONDANSETRON 2MG/ML, 2ML ONE (15:44)
[2017-04-03] MEDS ORDERED: ROCURONIUM 10 MG/ML ONE ×3 (15:44)
[2017-04-03] MEDS ORDERED: CEFAZOLIN 1,000 MG ONE (15:44)
[2017-04-03] MEDS ORDERED: OXYcodone 5 MG/5 ML ORAL.SOL UDC PO PRN (16:30)
[2017-04-03] MEDS ORDERED: MEPERIDINE/PF 25MG/0.5ML IVPush PRN (16:30)
[2017-04-03] MEDS ORDERED: ALBUTEROL SULFATE 2.5 MG/3 ML NPPB PRN (16:30)
[2017-04-03] MEDS ORDERED: PROMETHAZINE 25 MG/ML, 1ML IV PRN (16:30)
[2017-04-03] MEDS ORDERED: ONDANSETRON 2MG/ML, 2ML IVPush PRN (16:30)
[2017-04-03] MEDS ORDERED: MIDAZOLAM 1 MG/ML, 2ML IV PRN (16:30)
[2017-04-03] MEDS ORDERED: FENTANYL PF 100 MCG/2ML IV PRN (16:30)
[2017-04-03] MEDS ORDERED: ACETAMINOPHEN 325 MG TABLET PO PRN (16:30)
[2017-04-03] MEDS ORDERED: LABETALOL 5MG/ML, 20ML IV PRN (16:30)
[2017-04-03] MEDS ORDERED: HEPARIN 1,000 UNITS/ML, 30ML ONE (16:33)
[2017-04-03] MEDS ORDERED: HEPARIN 1,000 UNITS/ML, 10ML IV ONE (16:59)
[2017-04-03] MEDS ORDERED: hydrALAzine 20 MG/ML, 1ML ONE (18:36)
[2017-04-03] MEDS: hydrALAzine 20 MG/ML, 1ML IV PRN ×2 (18:40→19:00)
[2017-04-03] MEDS ORDERED: HYDROmorphone 1 MG/ML, 1ML ONE (19:13)
[2017-04-03] MEDS: HYDROmorphone 1 MG/ML, 1ML IV PRN ×2 (19:15→19:35)
[2017-04-03] MEDS ORDERED: OXYcodone 5 MG/5 ML ORAL.SOL UDC ONE (19:49)
[2017-04-03 20:27] VITALS: BP 121/74
[2017-04-03] MEDS: ENOXAPARIN 40 MG/0.4 ML SQ SCH (23:26)
[2017-04-04 00:22] VITALS: BP 110/48
[2017-04-04 05:49] VITALS: BP 103/66
[2017-04-04] MEDS: METOPROLOL TARTRATE 25 MG TABLET PO SCH ×2 (05:49→18:37)
[2017-04-04 06:06] LABS: ASPARTATE AMINO TRANSFERASE 20 U/L (15-37); BLOOD UREA NITROGEN 13 mg/dL (7-18)
[2017-04-04 06:09] LABS: HEMATOCRIT 36.2 % (39.2-51.8); HEMOGLOBIN 11.9 g/dL (13.7-18.0); WHITE BLOOD COUNT 13.2 x10^3/uL (3.4-10)
[2017-04-04 07:40] VITALS: BP 110/61
[2017-04-04] MEDS: LACTULOSE 20 GM/30 ML UDC PO SCH ×2 (09:57→22:41)
[2017-04-04] MEDS: FAMOTIDINE 20 MG TABLET PO SCH ×2 (09:57→22:41)
[2017-04-04] MEDS: FOLIC ACID 1 MG TABLET PO SCH (09:57)
[2017-04-04] MEDS: THIAMINE 100MG TABLET PO SCH (09:58)
[2017-04-04] MEDS ORDERED: D5%-0.45NACL+KCL 20MEQ 1,000 ML IV SCH (10:30)
[2017-04-04 13:30] VITALS: BP 105/65
[2017-04-04 18:38] VITALS: BP 118/68
[2017-04-04 19:04] VITALS: BP 106/63
[2017-04-04] MEDS ORDERED: morphine SULFATE 10 MG/ML, 1ML IV PRN (19:30)
[2017-04-04] MEDS: ENOXAPARIN 40 MG/0.4 ML SQ SCH ×2 (19:30→22:41)
[2017-04-04] MEDS: SODIUM CHLORIDE FLUSH 10ML SYR IVF SCH (19:55)
[2017-04-04] MEDS: LACTATED RINGERS 1,000 ML IV SCH (20:00)
[2017-04-04] MEDS ORDERED: ONDANSETRON 2MG/ML, 2ML IV PRN (20:00)
[2017-04-04] MEDS ORDERED: ACETAMINOPHEN 650 MG SUPP PR PRN (20:00)
[2017-04-04] MEDS ORDERED: ACETAMINOPHEN 325 MG TABLET PO PRN (20:00)
[2017-04-04] MEDS ORDERED: SODIUM CHLORIDE FLUSH 10ML SYR IVF SCH ×2 (21:00)
[2017-04-05 01:03] VITALS: BP 119/69
[2017-04-05 06:08] LABS: HEMATOCRIT 34.6 % (39.2-51.8); HEMOGLOBIN 11.7 g/dL (13.7-18.0); WHITE BLOOD COUNT 14.1 x10^3/uL (3.4-10)
[2017-04-05 06:24] LABS: BLOOD UREA NITROGEN 16 mg/dL (7-18)
[2017-04-05 06:27] LABS: ASPARTATE AMINO TRANSFERASE 14 U/L (15-37)
[2017-04-05 07:32] VITALS: BP 146/76
[2017-04-05] MEDS: THIAMINE 100MG TABLET PO SCH (09:28)
[2017-04-05] MEDS: FAMOTIDINE 20 MG TABLET PO SCH ×2 (09:28→21:19)
[2017-04-05] MEDS: SODIUM CHLORIDE FLUSH 10ML SYR IVF SCH ×2 (09:28→21:19)
[2017-04-05] MEDS: LACTULOSE 20 GM/30 ML UDC PO SCH ×2 (09:28→21:19)
[2017-04-05] MEDS: FOLIC ACID 1 MG TABLET PO SCH (09:28)
[2017-04-05] MEDS: LACTATED RINGERS 1,000 ML IV SCH (09:29)
[2017-04-05 13:36] VITALS: BP 132/77
[2017-04-05 18:56] VITALS: BP 141/83
[2017-04-05] MEDS ORDERED: DOCUSATE 100 MG CAPSULE PO PRN (21:00)
[2017-04-05] MEDS ORDERED: ACETAMINOPHEN 650 MG SUPP PR PRN (21:00)
[2017-04-05] MEDS ORDERED: ONDANSETRON 2MG/ML, 2ML IV PRN (21:00)
[2017-04-05] MEDS ORDERED: LABETALOL 5MG/ML, 20ML IVPush PRN (21:00)
[2017-04-05] MEDS: ENOXAPARIN 40 MG/0.4 ML SQ SCH ×2 (21:00→21:19)
[2017-04-05] MEDS ORDERED: POLYETHYLENE GLYCOL 17 GM PACKET PO PRN (21:00)
[2017-04-05] MEDS ORDERED: BISACODYL 10 MG SUPP PR PRN (21:00)
[2017-04-05] MEDS ORDERED: ACETAMINOPHEN 325 MG TABLET PO PRN ×2 (21:00)
[2017-04-06 00:20] VITALS: BP 160/89
[2017-04-06 04:58] LABS: HEMATOCRIT 37.2 % (39.2-51.8); HEMOGLOBIN 12.5 g/dL (13.7-18.0); WHITE BLOOD COUNT 13.5 x10^3/uL (3.4-10)
[2017-04-06 05:07] LABS: ASPARTATE AMINO TRANSFERASE 19 U/L (15-37); BLOOD UREA NITROGEN 13 mg/dL (7-18)
[2017-04-06 08:23] VITALS: BP 118/74
[2017-04-06] MEDS: SODIUM CHLORIDE FLUSH 10ML SYR IVF SCH ×2 (09:00→22:38)
[2017-04-06] MEDS: THIAMINE 100MG TABLET PO SCH (11:44)
[2017-04-06] MEDS: FAMOTIDINE 20 MG TABLET PO SCH ×2 (11:44→22:37)
[2017-04-06] MEDS: FOLIC ACID 1 MG TABLET PO SCH (11:44)
[2017-04-06] MEDS: LEVETIRACETAM 500 MG TABLET PO SCH ×2 (11:44→22:37)
[2017-04-06] MEDS: LACTULOSE 20 GM/30 ML UDC PO SCH ×2 (11:44→22:37)
[2017-04-06 12:50] VITALS: BP 114/78
[2017-04-06 18:57] VITALS: BP 105/68
[2017-04-06] MEDS: ENOXAPARIN 40 MG/0.4 ML SQ SCH (22:37)
[2017-04-07 02:49] VITALS: BP 108/74
[2017-04-07] MEDS: SODIUM CHLORIDE FLUSH 10ML SYR IVF SCH ×2 (09:00→21:56)
[2017-04-07] MEDS: LEVETIRACETAM 500 MG TABLET PO SCH ×2 (10:50→21:56)
[2017-04-07] MEDS: LACTULOSE 20 GM/30 ML UDC PO SCH ×2 (10:50→21:55)
[2017-04-07] MEDS: THIAMINE 100MG TABLET PO SCH (10:50)
[2017-04-07] MEDS: FAMOTIDINE 20 MG TABLET PO SCH ×2 (10:50→21:56)
[2017-04-07] MEDS: FOLIC ACID 1 MG TABLET PO SCH (10:50)
[2017-04-07 13:55] VITALS: BP 105/70
[2017-04-07 20:00] VITALS: BP 132/85
[2017-04-07] MEDS: ENOXAPARIN 40 MG/0.4 ML SQ SCH (21:55)
[2017-04-08 02:00] VITALS: BP 112/74
[2017-04-08 05:28] LABS: ASPARTATE AMINO TRANSFERASE 24 U/L (15-37); BLOOD UREA NITROGEN 23 mg/dL (7-18)
[2017-04-08 05:30] LABS: HEMOGLOBIN 12.1 g/dL (13.7-18.0); WHITE BLOOD COUNT 10.3 x10^3/uL (3.4-10)
[2017-04-08] MEDS: ASPIRIN 81 MG TABLET EC PO SCH (06:15)
[2017-04-08 07:01] VITALS: BP 118/79
[2017-04-08] MEDS: FAMOTIDINE 20 MG TABLET PO SCH ×2 (09:17→21:00)
[2017-04-08] MEDS: FOLIC ACID 1 MG TABLET PO SCH (09:17)
[2017-04-08] MEDS: LACTULOSE 20 GM/30 ML UDC PO SCH ×2 (09:17→21:00)
[2017-04-08] MEDS: THIAMINE 100MG TABLET PO SCH (09:17)
[2017-04-08] MEDS: ERGOCALCIFEROL 50,000 UNIT CAPSULE PO SCH (09:17)
[2017-04-08] MEDS: SODIUM CHLORIDE FLUSH 10ML SYR IVF SCH ×2 (09:17→21:01)
[2017-04-08] MEDS: LEVETIRACETAM 500 MG TABLET PO SCH ×2 (09:17→21:00)
[2017-04-08 12:48] VITALS: BP 124/79
[2017-04-08] MEDS ORDERED: SODIUM CHLORIDE 0.9% 1,000 ML IV SCH (17:00)
[2017-04-08 20:00] VITALS: BP 117/77
[2017-04-08] MEDS: ENOXAPARIN 40 MG/0.4 ML SQ SCH (21:00)
[2017-04-08] MEDS: ATORVASTATIN 40 MG TABLET PO SCH (21:00)
[2017-04-09 02:00] VITALS: BP 113/76
[2017-04-09] MEDS: ASPIRIN 81 MG TABLET EC PO SCH (04:33)
[2017-04-09] MEDS: SODIUM CHLORIDE FLUSH 10ML SYR IVF SCH ×2 (07:38→20:32)
[2017-04-09] MEDS: LACTULOSE 20 GM/30 ML UDC PO SCH ×2 (07:39→20:32)
[2017-04-09] MEDS: FOLIC ACID 1 MG TABLET PO SCH (07:39)
[2017-04-09] MEDS: FAMOTIDINE 20 MG TABLET PO SCH ×2 (07:39→20:32)
[2017-04-09] MEDS: THIAMINE 100MG TABLET PO SCH (07:40)
[2017-04-09] MEDS: LEVETIRACETAM 500 MG TABLET PO SCH ×2 (07:40→20:32)
[2017-04-09 08:38] VITALS: BP 122/76
[2017-04-09 16:51] VITALS: BP 115/73
[2017-04-09 20:10] VITALS: BP 142/81
[2017-04-09] MEDS: ENOXAPARIN 40 MG/0.4 ML SQ SCH (20:32)
[2017-04-09] MEDS: ATORVASTATIN 40 MG TABLET PO SCH (20:32)
[2017-04-10 01:47] VITALS: BP 148/88
[2017-04-10] MEDS: ASPIRIN 81 MG TABLET EC PO SCH (05:44)
[2017-04-10 07:50] VITALS: BP 156/91
[2017-04-10] MEDS: SODIUM CHLORIDE FLUSH 10ML SYR IVF SCH ×2 (08:07→20:42)
[2017-04-10] MEDS: FOLIC ACID 1 MG TABLET PO SCH (08:07)
[2017-04-10] MEDS: LACTULOSE 20 GM/30 ML UDC PO SCH ×2 (08:07→20:39)
[2017-04-10] MEDS: LEVETIRACETAM 500 MG TABLET PO SCH ×2 (08:07→20:39)
[2017-04-10] MEDS: FAMOTIDINE 20 MG TABLET PO SCH ×2 (08:07→20:39)
[2017-04-10] MEDS: THIAMINE 100MG TABLET PO SCH (08:08)
[2017-04-10 15:30] VITALS: BP 142/88
[2017-04-10 20:18] VITALS: BP 122/75
[2017-04-10] MEDS: ATORVASTATIN 40 MG TABLET PO SCH (20:39)
[2017-04-10] MEDS: ENOXAPARIN 40 MG/0.4 ML SQ SCH (20:40)
[2017-04-11 00:55] VITALS: BP 128/77
[2017-04-11] MEDS: ASPIRIN 81 MG TABLET EC PO SCH (05:32)
[2017-04-11 08:35] VITALS: BP 150/94
[2017-04-11] MEDS: FAMOTIDINE 20 MG TABLET PO SCH ×2 (10:08→20:30)
[2017-04-11] MEDS: LEVETIRACETAM 500 MG TABLET PO SCH ×2 (10:08→20:30)
[2017-04-11] MEDS: SODIUM CHLORIDE FLUSH 10ML SYR IVF SCH ×2 (10:08→20:30)
[2017-04-11] MEDS: THIAMINE 100MG TABLET PO SCH (10:09)
[2017-04-11] MEDS: FOLIC ACID 1 MG TABLET PO SCH (10:09)
[2017-04-11] MEDS: LACTULOSE 20 GM/30 ML UDC PO SCH ×2 (10:12→20:30)
[2017-04-11 13:25] VITALS: BP 128/89
[2017-04-11 19:10] VITALS: BP 122/78
[2017-04-11] MEDS: ATORVASTATIN 40 MG TABLET PO SCH (20:30)
[2017-04-11] MEDS: ENOXAPARIN 40 MG/0.4 ML SQ SCH (20:30)
[2017-04-11] MEDS: HYDROcodone/APAP 5/325 TABLET PO PRN (20:37)
[2017-04-12 01:22] VITALS: BP 111/73
[2017-04-12] MEDS: ASPIRIN 81 MG TABLET EC PO SCH (06:00)
[2017-04-12 07:15] VITALS: BP 116/75
[2017-04-12] MEDS: SODIUM CHLORIDE FLUSH 10ML SYR IVF SCH ×2 (09:00→21:35)
[2017-04-12] MEDS: LACTULOSE 20 GM/30 ML UDC PO SCH ×2 (09:57→21:36)
[2017-04-12] MEDS: FAMOTIDINE 20 MG TABLET PO SCH ×2 (09:58→21:35)
[2017-04-12] MEDS: FOLIC ACID 1 MG TABLET PO SCH (09:58)
[2017-04-12] MEDS: THIAMINE 100MG TABLET PO SCH (09:58)
[2017-04-12] MEDS: LEVETIRACETAM 500 MG TABLET PO SCH ×2 (09:58→21:35)
[2017-04-12 13:15] VITALS: BP 120/72
[2017-04-12 19:24] VITALS: BP 129/85
[2017-04-12] MEDS ORDERED: ONDANSETRON 2MG/ML, 2ML IV PRN (20:30)
[2017-04-12] MEDS ORDERED: ACETAMINOPHEN 325 MG TABLET PO PRN ×2 (20:30)
[2017-04-12] MEDS ORDERED: POLYETHYLENE GLYCOL 17 GM PACKET PO PRN (20:30)
[2017-04-12] MEDS ORDERED: LABETALOL 5MG/ML, 20ML IVPush PRN (20:30)
[2017-04-12] MEDS ORDERED: DOCUSATE 100 MG CAPSULE PO PRN (20:30)
[2017-04-12] MEDS ORDERED: BISACODYL 10 MG SUPP PR PRN (20:30)
[2017-04-12] MEDS: ATORVASTATIN 40 MG TABLET PO SCH (21:35)
[2017-04-12] MEDS: ENOXAPARIN 40 MG/0.4 ML SQ SCH (21:35)
[2017-04-12] MEDS: HYDROcodone/APAP 5/325 TABLET PO PRN (21:36)
[2017-04-13 01:16] VITALS: BP 113/74
[2017-04-13] MEDS: ASPIRIN 81 MG TABLET EC PO SCH (06:27)
[2017-04-13 07:18] VITALS: BP 131/83
[2017-04-13] MEDS: SODIUM CHLORIDE FLUSH 10ML SYR IVF SCH ×2 (10:08→21:12)
[2017-04-13] MEDS: FAMOTIDINE 20 MG TABLET PO SCH ×2 (10:09→21:12)
[2017-04-13] MEDS: LEVETIRACETAM 500 MG TABLET PO SCH ×2 (10:09→21:12)
[2017-04-13] MEDS: FOLIC ACID 1 MG TABLET PO SCH (10:09)
[2017-04-13] MEDS: THIAMINE 100MG TABLET PO SCH (10:09)
[2017-04-13] MEDS: LACTULOSE 20 GM/30 ML UDC PO SCH ×2 (10:09→21:12)
[2017-04-13 12:31] VITALS: BP 117/77
[2017-04-13 20:00] VITALS: BP 138/87
[2017-04-13] MEDS: ATORVASTATIN 40 MG TABLET PO SCH (21:12)
[2017-04-13] MEDS: ENOXAPARIN 40 MG/0.4 ML SQ SCH (21:13)
[2017-04-14 02:00] VITALS: BP 132/79
[2017-04-14] MEDS: ASPIRIN 81 MG TABLET EC PO SCH (06:00)
[2017-04-14 08:00] VITALS: BP 144/89
[2017-04-14] MEDS: THIAMINE 100MG TABLET PO SCH (08:05)
[2017-04-14] MEDS: FAMOTIDINE 20 MG TABLET PO SCH ×2 (08:05→21:57)
[2017-04-14] MEDS: LACTULOSE 20 GM/30 ML UDC PO SCH ×2 (08:05→21:58)
[2017-04-14] MEDS: SODIUM CHLORIDE FLUSH 10ML SYR IVF SCH ×2 (08:05→21:58)
[2017-04-14] MEDS: FOLIC ACID 1 MG TABLET PO SCH (08:05)
[2017-04-14] MEDS: LEVETIRACETAM 500 MG TABLET PO SCH ×2 (08:05→21:57)
[2017-04-14 14:00] VITALS: BP 130/86
[2017-04-14] MEDS ORDERED: CEPHALEXIN 500 MG CAPSULE PO SCH (18:00)
[2017-04-14 19:54] VITALS: BP 126/82
[2017-04-14] MEDS: ATORVASTATIN 40 MG TABLET PO SCH (21:57)
[2017-04-14] MEDS: CEPHALEXIN 500 MG CAPSULE PO SCH (21:57)
[2017-04-14] MEDS: ENOXAPARIN 40 MG/0.4 ML SQ SCH (21:57)
[2017-04-15 01:31] VITALS: BP 114/68
[2017-04-15 05:15] LABS: BLOOD UREA NITROGEN 22 mg/dL (7-18)
[2017-04-15 05:19] LABS: HEMATOCRIT 40.3 % (39.2-51.8); HEMOGLOBIN 13.4 g/dL (13.7-18.0); WHITE BLOOD COUNT 12.1 x10^3/uL (3.4-10)
[2017-04-15] MEDS: ASPIRIN 81 MG TABLET EC PO SCH (06:06)
[2017-04-15] MEDS: CEPHALEXIN 500 MG CAPSULE PO SCH ×4 (06:06→20:53)
[2017-04-15 07:44] VITALS: BP 121/78
[2017-04-15] MEDS: FAMOTIDINE 20 MG TABLET PO SCH ×2 (07:48→20:58)
[2017-04-15] MEDS: LEVETIRACETAM 500 MG TABLET PO SCH ×2 (07:48→20:53)
[2017-04-15] MEDS: FOLIC ACID 1 MG TABLET PO SCH (07:48)
[2017-04-15] MEDS: LACTULOSE 20 GM/30 ML UDC PO SCH ×2 (07:48→20:53)
[2017-04-15] MEDS: THIAMINE 100MG TABLET PO SCH (07:48)
[2017-04-15] MEDS: SODIUM CHLORIDE FLUSH 10ML SYR IVF SCH ×2 (07:49→20:53)
[2017-04-15] MEDS: ERGOCALCIFEROL 50,000 UNIT CAPSULE PO SCH (10:13)
[2017-04-15 13:00] VITALS: BP 126/83
[2017-04-15 19:31] VITALS: BP 132/88
[2017-04-15] MEDS: ATORVASTATIN 40 MG TABLET PO SCH (20:53)
[2017-04-15] MEDS: ENOXAPARIN 40 MG/0.4 ML SQ SCH (20:53)
[2017-04-16 01:28] VITALS: BP 127/82
[2017-04-16] MEDS: CEPHALEXIN 500 MG CAPSULE PO SCH ×3 (05:18→16:11)
[2017-04-16] MEDS: ASPIRIN 81 MG TABLET EC PO SCH (05:18)
[2017-04-16 06:59] VITALS: BP 120/80
[2017-04-16] MEDS: FAMOTIDINE 20 MG TABLET PO SCH (11:29)
[2017-04-16] MEDS: LACTULOSE 20 GM/30 ML UDC PO SCH (11:29)
[2017-04-16] MEDS: FOLIC ACID 1 MG TABLET PO SCH (11:29)
[2017-04-16] MEDS: THIAMINE 100MG TABLET PO SCH (11:29)
[2017-04-16] MEDS: LEVETIRACETAM 500 MG TABLET PO SCH (11:29)
[2017-04-16] MEDS: SODIUM CHLORIDE FLUSH 10ML SYR IVF SCH (11:34)
[2017-04-16 13:00] VITALS: BP 115/79
[2017-04-16] MEDS ORDERED: ACET325T14 PO (13:05)
[2017-04-16] MEDS ORDERED: ATOR40TA78 PO (13:05)
[2017-04-16] MEDS ORDERED: BISA10SU65 PR (13:05)
[2017-04-16] MEDS ORDERED: ASPI-621 PO (13:05)
[2017-04-16] MEDS ORDERED: CEPH-376 PO (13:06)
[2017-04-16] MEDS ORDERED: LEVE500T53 PO (13:06)
[2017-04-16] MEDS ORDERED: FOLI-17 PO (13:06)
[2017-04-16] MEDS ORDERED: DOCU-131 PO (13:06)
[2017-04-16] MEDS ORDERED: POLY17PO5 PO (13:06)
[2017-04-16] MEDS ORDERED: LACT20SO13 PO (13:06)
[2017-04-16] MEDS ORDERED: ERGO500017 PO (13:06)
[2017-04-16] MEDS ORDERED: THIA100T6 PO (13:06)
[2017-04-16] MEDS ORDERED: HYDR-3240 PO (13:06)
[2017-04-16] MEDS ORDERED: FLU VACC QS2017-18 (36MOS+) UP/PF 0.5 ML IM-VACC ONE (15:00)
[2017-04-16] MEDS ORDERED: PNEUMOCOCCAL 23 VACCINE IM-VACC ONE (15:00)
== END 2017-04-16 16:34 | DRG 268 ==
LOC: ED 14:40 → EDIP 16:11 → 4WST 19:49 → 4EST 03-16 03:37
PROVIDERS: ADMIT Family Medicine; ATTEND Family Medicine
PROC: 009U3ZX Drainage of Spinal Canal, Percutaneous Approach, Diagnostic (ICD-10-PCS; principal; 2017-03-15)
PROC: 04LF3DZ Occlusion of Left Internal Iliac Artery with Intraluminal Device, Percutaneous Approach (ICD-10-PCS; 2017-03-15)
PROC: 04V03D6 (ICD-10-PCS; 2017-03-15)
PROC: B41D1ZZ Fluoroscopy of Aorta and Bilateral Lower Extremity Arteries using Low Osmolar Contrast (ICD-10-PCS; 2017-03-15)
DX: I71.4 Abdominal aortic aneurysm, without rupture (principal); G93.40 Encephalopathy, unspecified; E87.2 Acidosis; I72.3 Aneurysm of iliac artery; E87.1 Hypo-osmolality and hyponatremia; S00.03XA Contusion of scalp, initial encounter; I50.30 Unspecified diastolic (congestive) heart failure; G91.2 (Idiopathic) normal pressure hydrocephalus; I11.0 Hypertensive heart disease with heart failure; S20.212A Contusion of left front wall of thorax, initial encounter; F17.200 Nicotine dependence, unspecified, uncomplicated; R29.6 Repeated falls; F10.10 Alcohol abuse, uncomplicated; F17.210 Nicotine dependence, cigarettes, uncomplicated; F03.90 Unspecified dementia, unspecified severity, without behavioral disturbance, psychotic disturbance, mood disturbance, and anxiety; G40.909 Epilepsy, unspecified, not intractable, without status epilepticus; I70.8 Atherosclerosis of other arteries; J32.0 Chronic maxillary sinusitis; J32.2 Chronic ethmoidal sinusitis; K82.8 Other specified diseases of gallbladder; N28.1 Cyst of kidney, acquired; F14.90 Cocaine use, unspecified, uncomplicated; R41.89 Other symptoms and signs involving cognitive functions and awareness; R74.0 Nonspecific elevation of levels of transaminase and lactic acid dehydrogenase [LDH]; Z86.73 Personal history of transient ischemic attack (TIA), and cerebral infarction without residual deficits; Z59.0 Homelessness; Z79.899 Other long term (current) drug therapy; W18.2XXA Fall in (into) shower or empty bathtub, initial encounter; Y93.E1 Activity, personal bathing and showering; Y92.89 Other specified places as the place of occurrence of the external cause; Y99.8 Other external cause status
CPT/HCPCS: 34802; 34812; 34825; 36415; 37242; 62270; 70450; 70544; 70551; 71010; 72158; 74177; 75952; 76700; 76857; 78806; 80048; 80053; 80074; 80202; 80307; 81003; 82040; 82140; 82306; 82533; 82565; 82607; 82945; 83735; 84145; 84157; 84443; 84484; 85025; 85610; 85651; 85730; 86140; 86480; 86592; 86611; 86622; 86631; 86632; 86635; 86638; 86703; 86788; 86789; 86850; 86900; 86923; 87040; 87070; 87077; 87186; 87205; 87252; 87498; 87529; 87798; 87899; 89051; 90686; 90732; 93005; 93306; 95819; 96361; 96365; 96366; A9585; J0133; J0171; J0690; J0712; J0878; J1100; J1170; J1644; J1650; J2250; J2405; J2543; J2704; J2720; J3010; J3370; J3411; J3490; Q9967; 92523-GN; A9547; C1751; C1768; C1769; C1894; C2628; C9898; G0435; G0479; J0330; J0360; J2370; J3480; J7030; J7040; J7050; J7120

== ENCOUNTER 2018-01-23 06:22 | Inpatient (IN) | payer MEDICARE ==
[~2018-01-23] VITALS: Ht 177.8 cm; Wt 87.7 kg
[~2018-01-23 06:22] MED LIST: ACET325T14 PO; ASPI-621 PO; ATOR40TA78 PO; BISA10SU65 PR; CEPH-376 PO; DOCU-131 PO; ERGO500017 PO; FOLI-17 PO; HYDR-3240 PO; LACT20SO13 PO; LEVE500T53 PO; POLY17PO5 PO; THIA100T67 PO
[2018-01-23] MEDS ORDERED: SODIUM CHLORIDE 0.9% 1,000 ML IV ONE (06:23)
[2018-01-23] MEDS ORDERED: PIPERACILLIN/TAZO/PMX 3.375GM 50 ML ONE (06:29)
[2018-01-23] MEDS ORDERED: ACETAMINOPHEN 500 MG TABLET ONE (06:29)
[2018-01-23] MEDS ORDERED: PIPERACILLIN/TAZO/PMX 3.375GM 50 ML IVPB ONE (06:30)
[2018-01-23] MEDS ORDERED: ACETAMINOPHEN 500 MG TABLET PO ONE (06:30)
[2018-01-23] MEDS ORDERED: VANCOMYCIN PER PHARMACY IV ONE (06:30)
[2018-01-23] MEDS ORDERED: SODIUM CHLORIDE 0.9% 1,000ML IVBOLUS ONE ×2 (06:30→08:00)
[2018-01-23] MEDS ORDERED: SODIUM CHLORIDE FLUSH 10ML SYR IVF ONE (06:30)
[2018-01-23 06:54] LABS: MEAN CORPUSCULAR HEMOGLOBIN 27.3 pg (27.5-34.5); MEAN CORPUSCULAR HGB CONC 32.1 g/dL (33.2-36.2); MEAN CORPUSCULAR VOLUME 84.9 fL (81-97); MEAN PLATELET VOLUME 9.7 fL (7.4-10.4); PLATELET COUNT 271 x10^3/uL (130-400); RED BLOOD COUNT 5.05 x10^6/uL (4.38-5.82); RED CELL DISTRIBUTION WIDTH 15.7 % (9.4-14.8)
[2018-01-23] MEDS ORDERED: VANCOMYCIN 1,600 MG in SODIUM CHLORIDE 0.9% 250 ML IV ONE (07:00)
[2018-01-23 07:07] LABS: ALANINE AMINOTRANSFERASE 71 U/L (12-78); ALBUMIN 2.4 g/dL (3.4-5.0); CALCIUM 8.3 mg/dL (8.5-10.1); CHLORIDE 114 mmol/L (98-107); CREATININE 1.71 mg/dL (0.7-1.3)
[2018-01-23 07:11] LABS: ALKALINE PHOSPHATASE 105 U/L (45-117); BILIRUBIN,TOTAL 0.6 mg/dL (0.2-1.0); TOTAL PROTEIN 6.4 g/dL (6.4-8.2)
[2018-01-23 07:12] LABS: INTERNATIONAL NORMALIZED RATIO 1.22 (0.93-1.1); PROTHROMBIN TIME 12.5 Seconds (9.6-11.5)
[2018-01-23 07:34] LABS: MD YES
[2018-01-23 07:43] LABS: BAND#(MANUAL) 2.59 x10^3/uL; BANDS%(MANUAL) 10 % (0-7); LYMPH#(MANUAL) 0.78 x10^3/uL (1-3.4); LYMPHS% (MANUAL) 3 % (22-44); MONOS#(MANUAL) 0.52 x10^3/uL (0.3-2.7); MONOS% (MANUAL) 2 % (2-9); SEG#(MANUAL) 22.02 x10^3/uL (1.8-6.8); SEGS% (MANUAL) 85 % (42-75)
[2018-01-23 07:44] LABS: PMNS WITH VACUOLES 1+
[2018-01-23 07:45] LABS: <PLATELET ESTIMATE> ADEQUATE; <PLT MORPHOLOGY> NORMAL PLT MORPH; ANISOCYTOSIS 1+; OVALOCYTES 1+
[2018-01-23 07:58] LABS: ANION GAP 12 mmol/L (5-15)
[2018-01-23 07:59] LABS: CULTURE INDICATED? YES; MICROSCOPIC INDICATED
[2018-01-23] MEDS ORDERED: ACETAMINOPHEN 325 MG TABLET PO PRN ×2 (08:30→09:00)
[2018-01-23] MEDS ORDERED: ENALAPRILAT 1.25 MG/ML, 2ML IVPush PRN (08:30)
[2018-01-23] MEDS ORDERED: ONDANSETRON ODT 4 MG PO PRN (08:30)
[2018-01-23] MEDS ORDERED: PHARMACY MAY ADJ FOR RENAL FX MC PRN (08:30)
[2018-01-23] MEDS ORDERED: SODIUM CHLORIDE FLUSH 10ML SYR IVF PRN (08:30)
[2018-01-23] MEDS ORDERED: LABETALOL 5MG/ML, 20ML IVPush PRN (08:30)
[2018-01-23] MEDS ORDERED: ONDANSETRON 2MG/ML, 2ML IVPush PRN (08:30)
[2018-01-23 08:48] LABS: HCT (SEDRATE) 39.3 % (39.2-51.8)
[2018-01-23] MEDS: LEVETIRACETAM 500 MG TABLET PO SCH ×3 (09:00→20:34)
[2018-01-23] MEDS ORDERED: DOCUSATE 100 MG CAPSULE PO PRN (09:00)
[2018-01-23] MEDS: FOLIC ACID 1 MG TABLET PO SCH ×2 (09:00→10:21)
[2018-01-23] MEDS: THIAMINE 100MG TABLET PO SCH ×2 (09:00→10:21)
[2018-01-23] MEDS ORDERED: POLYETHYLENE GLYCOL 17 GM PACKET PO PRN (09:00)
[2018-01-23 09:05] LABS: FREE T4 (FREE THYROXINE) 1.54 ng/dL (0.76-1.46); THYROID STIMULATING HORMONE 1.12 mIU/L (0.358-3.740)
[2018-01-23] MEDS: HEPARIN 5,000 UNITS/ML, 1ML SQ SCH ×2 (10:20→17:41)
[2018-01-23] MEDS: SODIUM CHLORIDE 0.9% 1,000 ML IV SCH ×2 (10:20→17:43)
[2018-01-23] MEDS ORDERED: PHARMACOKINETIC MONITORING MC PRN (10:30)
[2018-01-23] MEDS ORDERED: PHARMACOKINETIC CONSULTATION MC ONE (10:30)
[2018-01-23 11:20] VITALS: BP 102/72
[2018-01-23 13:23] VITALS: BP 90/62
[2018-01-23] MEDS ORDERED: PIPERACILLIN/TAZO/PMX 3.375GM 50 ML IV SCH (14:30)
[2018-01-23] MEDS: MEROPENEM 1 GM in SODIUM CHLORIDE 0.9% 100 ML IV SCH (16:30)
[2018-01-23 19:25] LABS: CHLORIDE,URINE RANDOM 95 mmol/L; POTASSIUM,URINE RANDOM 68 mmol/L; SODIUM,URINE RANDOM 67 mmol/L
[2018-01-23 19:40] VITALS: BP 112/64
[2018-01-23] MEDS: ATORVASTATIN 40 MG TABLET PO SCH (20:34)
[2018-01-23] MEDS ORDERED: POTASSIUM PHOSPHATE 22 MEQ in SODIUM CHLORIDE 0.9% 500 ML IV ONE (22:00)
[2018-01-23] MEDS ORDERED: MAGNESIUM SULFATE 1 GM in SODIUM CHLORIDE 0.9% 50 ML IV ONE (22:00)
[2018-01-23] MEDS ORDERED: MAGNESIUM SULFATE 1 GM in DEXTROSE 5% 100 ML IV ONE (22:00)
[2018-01-24] MEDS: MEROPENEM 1 GM in SODIUM CHLORIDE 0.9% 100 ML IV SCH ×3 (00:29→21:38)
[2018-01-24] MEDS: HEPARIN 5,000 UNITS/ML, 1ML SQ SCH ×3 (01:46→19:48)
[2018-01-24 02:32] VITALS: BP 104/64
[2018-01-24] MEDS: ASPIRIN 81 MG TABLET EC PO SCH (05:12)
[2018-01-24] MEDS: SODIUM CHLORIDE 0.9% 1,000 ML IV SCH ×2 (05:18→12:00)
[2018-01-24 05:58] LABS: ANION GAP 12 mmol/L (5-15); CALCIUM 7.6 mg/dL (8.5-10.1); CHLORIDE 118 mmol/L (98-107); CREATININE 1.76 mg/dL (0.7-1.3)
[2018-01-24 06:15] LABS: MEAN CORPUSCULAR HEMOGLOBIN 27.8 pg (27.5-34.5); MEAN CORPUSCULAR HGB CONC 32.6 g/dL (33.2-36.2); MEAN CORPUSCULAR VOLUME 85.1 fL (81-97); MEAN PLATELET VOLUME 10.2 fL (7.4-10.4); PLATELET COUNT 172 x10^3/uL (130-400); RED BLOOD COUNT 4.26 x10^6/uL (4.38-5.82); RED CELL DISTRIBUTION WIDTH 16.3 % (9.4-14.8)
[2018-01-24 06:38] LABS: MD YES
[2018-01-24 06:40] LABS: LYMPHS% (MANUAL) 3 % (22-44); MONOS#(MANUAL) 0.37 x10^3/uL (0.3-2.7); MONOS% (MANUAL) 1 % (2-9)
[2018-01-24 06:41] LABS: BAND#(MANUAL) 6.61 x10^3/uL; BANDS%(MANUAL) 18 % (0-7); SEG#(MANUAL) 28.63 x10^3/uL (1.8-6.8); SEGS% (MANUAL) 78 % (42-75)
[2018-01-24 06:42] LABS: ANISOCYTOSIS 1+; ECHINOCYTES 1+; OVALOCYTES 1+
[2018-01-24 06:44] VITALS: BP 108/71
[2018-01-24 06:44] LABS: PMNS WITH VACUOLES 2+
[2018-01-24 06:45] LABS: <PLATELET ESTIMATE> ADEQUATE; LARGE PLATELETS 1+
[2018-01-24] MEDS ORDERED: VANCOMYCIN 1,200 MG in SODIUM CHLORIDE 0.9% 250 ML IVPB SCH (07:00)
[2018-01-24] MEDS ORDERED: DEXTROSE 5% 1,000 ML IV ONE (08:30)
[2018-01-24] MEDS: THIAMINE 100MG TABLET PO SCH (09:00)
[2018-01-24] MEDS: FOLIC ACID 1 MG TABLET PO SCH (09:00)
[2018-01-24] MEDS: LEVETIRACETAM 500 MG in SODIUM CHLORIDE 0.9% 100 ML IV SCH ×2 (09:22→20:34)
[2018-01-24] MEDS ORDERED: MEROPENEM 1 GM in SODIUM CHLORIDE 0.9% 100 ML IV SCH (11:00)
[2018-01-24 12:22] VITALS: BP 129/80
[2018-01-24 19:45] VITALS: BP 121/62
[2018-01-24] MEDS: ATORVASTATIN 40 MG TABLET PO SCH (20:33)
[2018-01-25 00:45] VITALS: BP 144/96
[2018-01-25] MEDS: SODIUM CHLORIDE 0.9% 1,000 ML IV SCH ×2 (02:07→10:11)
[2018-01-25] MEDS: HEPARIN 5,000 UNITS/ML, 1ML SQ SCH ×3 (04:20→21:51)
[2018-01-25] MEDS: ASPIRIN 81 MG TABLET EC PO SCH (05:48)
[2018-01-25 06:41] VITALS: BP 130/82
[2018-01-25] MEDS: FOLIC ACID 1 MG TABLET PO SCH (09:04)
[2018-01-25] MEDS: LEVETIRACETAM 500 MG TABLET PO SCH ×2 (09:04→21:51)
[2018-01-25] MEDS: THIAMINE 100MG TABLET PO SCH (09:04)
[2018-01-25] MEDS: MEROPENEM 1 GM in SODIUM CHLORIDE 0.9% 100 ML IV SCH (10:11)
[2018-01-25 12:06] LABS: MEAN CORPUSCULAR HEMOGLOBIN 28.4 pg (27.5-34.5); MEAN CORPUSCULAR HGB CONC 33.2 g/dL (33.2-36.2); MEAN CORPUSCULAR VOLUME 85.4 fL (81-97); MEAN PLATELET VOLUME 11.1 fL (7.4-10.4); PLATELET COUNT 153 x10^3/uL (130-400); RED BLOOD COUNT 4.31 x10^6/uL (4.38-5.82); RED CELL DISTRIBUTION WIDTH 16.8 % (9.4-14.8)
[2018-01-25 12:08] VITALS: BP 168/98
[2018-01-25 12:15] LABS: ALBUMIN 1.9 g/dL (3.4-5.0); ANION GAP 6 mmol/L (5-15); CALCIUM 7.8 mg/dL (8.5-10.1); CHLORIDE 119 mmol/L (98-107); CREATININE 1.51 mg/dL (0.7-1.3)
[2018-01-25 12:18] LABS: MD YES
[2018-01-25 12:21] LABS: ANISOCYTOSIS 1+; BAND#(MANUAL) 2.24 x10^3/uL; BANDS%(MANUAL) 8 % (0-7); ECHINOCYTES 1+; EOS#(MANUAL) 0.56 x10^3/uL (0.0-0.4); EOS% (MANUAL) 2 % (1-7); LYMPH#(MANUAL) 2.52 x10^3/uL (1-3.4); LYMPHS% (MANUAL) 9 % (22-44); METAMYELOCYTES# (MANUAL) 0.56 x10^3/uL (0-0); METAMYELOCYTES% (MANUAL) 2 % (0-1); OVALOCYTES 1+; PMNS WITH VACUOLES 2+; SEG#(MANUAL) 22.12 x10^3/uL (1.8-6.8); SEGS% (MANUAL) 79 % (42-75); TOXIC GRAN 1+
[2018-01-25 12:22] LABS: <PLATELET ESTIMATE> ADEQUATE; LARGE PLATELETS 1+
[2018-01-25 19:55] VITALS: BP 129/82
[2018-01-25] MEDS ORDERED: CEFTRIAXONE 2 GM in SODIUM CHLORIDE 0.9% 50 ML IV SCH (20:30)
[2018-01-25] MEDS: ATORVASTATIN 40 MG TABLET PO SCH (21:52)
[2018-01-26] MEDS ORDERED: ASPIRIN 81 MG TABLET CHEW PO SCH (01:07)
[2018-01-26 02:09] VITALS: BP 146/84
[2018-01-26] MEDS: HEPARIN 5,000 UNITS/ML, 1ML SQ SCH ×2 (05:48→14:30)
[2018-01-26 05:59] LABS: CHLORIDE 116 mmol/L (98-107)
[2018-01-26 06:01] LABS: MEAN CORPUSCULAR HEMOGLOBIN 28.1 pg (27.5-34.5); MEAN CORPUSCULAR HGB CONC 32.8 g/dL (33.2-36.2); MEAN CORPUSCULAR VOLUME 85.5 fL (81-97); MEAN PLATELET VOLUME 11.6 fL (7.4-10.4); PLATELET COUNT 146 x10^3/uL (130-400); RED BLOOD COUNT 4.26 x10^6/uL (4.38-5.82)
[2018-01-26 06:14] LABS: ALANINE AMINOTRANSFERASE 39 U/L (12-78); ALBUMIN 1.9 g/dL (3.4-5.0); ALKALINE PHOSPHATASE 113 U/L (45-117); ANION GAP 8 mmol/L (5-15); BILIRUBIN,TOTAL 0.4 mg/dL (0.2-1.0); CALCIUM 7.8 mg/dL (8.5-10.1); CREATININE 1.27 mg/dL (0.7-1.3); TOTAL PROTEIN 5.8 g/dL (6.4-8.2)
[2018-01-26 06:15] LABS: BASOPHILS # (AUTO) 0.06 x10^3/uL (0-0.1); BASOPHILS % (AUTO) 0 % (0-1); EOSINOPHILS # (AUTO) 0.12 x10^3/uL (0-0.4); EOSINOPHILS % (AUTO) 1 % (1-7); LYMPHOCYTES % (AUTO) 7 % (22-44); MD SCAN; MONOCYTES # (AUTO) 1.71 x10^3/uL (0.2-0.8); MONOCYTES % (AUTO) 8 % (2-9); NEUTROPHILS # (AUTO) 16.97 x10^3/uL (1.8-6.8); NEUTROPHILS % (AUTO) 83 % (42-75)
[2018-01-26 06:17] LABS: HCT (SEDRATE) 36.8 % (39.2-51.8)
[2018-01-26 06:50] VITALS: BP 129/88
[2018-01-26] MEDS: THIAMINE 100MG TABLET PO SCH (08:08)
[2018-01-26] MEDS: LEVETIRACETAM 500 MG TABLET PO SCH (08:08)
[2018-01-26] MEDS: FOLIC ACID 1 MG TABLET PO SCH (08:08)
[2018-01-26 13:25] VITALS: BP 138/78
[2018-01-26] MEDS ORDERED: CEFT2VIA4 IV (17:25)
== END 2018-01-26 18:30 | DRG 871 ==
LOC: ED 07:54 → 4EST 08:22
PROVIDERS: ADMIT Internal Medicine; ATTEND Internal Medicine
PROC: 0T9B70Z Drainage of Bladder with Drainage Device, Via Natural or Artificial Opening (ICD-10-PCS; principal; 2018-01-23)
DX: A41.89 Other specified sepsis (principal); N17.0 Acute kidney failure with tubular necrosis; E87.2 Acidosis; G91.2 (Idiopathic) normal pressure hydrocephalus; E87.0 Hyperosmolality and hypernatremia; I50.30 Unspecified diastolic (congestive) heart failure; R65.20 Severe sepsis without septic shock; G40.909 Epilepsy, unspecified, not intractable, without status epilepticus; F17.210 Nicotine dependence, cigarettes, uncomplicated; F03.90 Unspecified dementia, unspecified severity, without behavioral disturbance, psychotic disturbance, mood disturbance, and anxiety; N18.9 Chronic kidney disease, unspecified; E87.6 Hypokalemia; W18.30XA Fall on same level, unspecified, initial encounter; N30.90 Cystitis, unspecified without hematuria; E83.42 Hypomagnesemia; E83.39 Other disorders of phosphorus metabolism; B96.4 Proteus (mirabilis) (morganii) as the cause of diseases classified elsewhere; E87.8 Other disorders of electrolyte and fluid balance, not elsewhere classified; I71.4 Abdominal aortic aneurysm, without rupture; E86.0 Dehydration; Y93.89 Activity, other specified; Z86.73 Personal history of transient ischemic attack (TIA), and cerebral infarction without residual deficits; Z86.718 Personal history of other venous thrombosis and embolism; Z79.01 Long term (current) use of anticoagulants; Y92.89 Other specified places as the place of occurrence of the external cause; Y99.8 Other external cause status; Z86.79 Personal history of other diseases of the circulatory system; Z79.899 Other long term (current) drug therapy; Z79.1 Long term (current) use of non-steroidal anti-inflammatories (NSAID)
CPT/HCPCS: 36415; 36600; 70450; 71045; 76770; 80048; 80053; 80069; 81001; 82140; 82436; 82803; 83036; 83605; 83690; 83735; 83880; 84100; 84133; 84145; 84300; 84439; 84443; 85025; 85610; 85651; 85730; 86140; 87040; 87077; 87086; 87186; 93005; 96365; 96366; 96367; J0696; J1644; J1953; J2185; J2543; J3370; J3475; J7030; J7040; J7050